=== PATIENT | female | born 1985 | race Caucasian/White ===

== ENCOUNTER 2021-03-19 10:55 | Inpatient (IN) | payer MEDICAID, SELFPAY ==
[2021-03-19] VITALS (32 sets, daily range): BP systolic 98–129; BP diastolic 61–85; PULSE 68–128; RESP 12–20; TEMP 36.6–37.1; O2SAT 92–100; BMI 23.3; BMI 23.0
--- NOTE | 2021-03-19 11:07 | ECG_ITS ---
APPROVED REPORT Exam: Resting ECG HR:102 bpm ECG Measurements Heart Rate 102 AXES FL 116 P 64 QRSd 88 QRS 48 QT 352 T 62 QTc 458 Conclusion Sinus tachycardia Otherwise normal ECG Electronically signed by : Julius Joaquin MD 03/19/2021 17:55:09
--- NOTE | 2021-03-19 11:09 | HMH.EDGENADL ---
ED Disposition Clinical Impression: Near syncope, Elevated troponin Anemia Qualifiers: Anemia type: unspecified type Qualified Code(s): D64.9 - Anemia, unspecified Disposition: Admitted as Observation Condition on Discharge: Fair Referrals: Provider,Referral, [Primary Care Provider] - - Critical Care Critical Care Time: No Attestation: On 03/19/21, the high probability of a clinically significant, sudden or life threatening deterioration of the following system(s) required my full and direct attention, intervention and personal management. The time I documented below is in addition to time spent performing reported procedures but includes the following listed in this critical care notation. Medical Decision Making - Tay Inquiry Pt receiving controlled substance: No Vital Signs: 03/19/21 10:56 03/19/21 11:37 03/19/21 12:00 Temperature 98 F Temperature Source Oral Pulse Rate 102 H Pulse Rate [Orthostatic Lying] 103 H Pulse Rate [Orthostatic Standing] 128 H Pulse Rate [Radial] 110 H Respiratory Rate 18 18 Blood Pressure 109/71 L Blood Pressure [Orthostatic Lying] 110/72 Blood Pressure [Orthostatic Standing] 108/73 L Blood Pressure [Right Arm] 122/78 Blood Pressure Mean [Right Arm] 92 Blood Pressure Source Automatic Cuff Blood Pressure Position Sitting Blood Pressure Position [Right Arm] Sitting 02 Sat by Pulse Oximetry 98 100 Oxygen Delivery Method Room Air Room Air 03/19/21 12:39 Temperature Temperature Source Pulse Rate 94 H Pulse Rate [Orthostatic Lying] Pulse Rate [Orthostatic Standing] Pulse Rate [Radial] Respiratory Rate 12 Blood Pressure 119/63 Blood Pressure [Orthostatic Lying] Blood Pressure [Orthostatic Standing] Blood Pressure [Right Arm] Blood Pressure Mean [Right Arm] Blood Pressure Source Blood Pressure Position Blood Pressure Position [Right Arm] 02 Sat by Pulse Oximetry 100 Oxygen Delivery Method - Lab Data Lab Results 03/19/21 11:06: POC Glucose 127 H 03/19/21 11:11: Urine Color Yellow, Urine Appearance Clear, Urine pH 6.0, Ur Specific [place] 1.010, Urine Protein Negative, Urine Glucose (UA) Negative, Urine Ketones Trace, Urine Blood Trace-i, Urine Nitrate Negative, Urine Bilirubin Negative, Urine Urobilinogen 0.2, Ur Leukocyte Esterase Negative, Urine RBC Occasional, Ur Squamous Epith Cells Occasional, Urine Mucus 1+ 03/19/21 11:11: Urine HCG, Qual Negative 03/19/21 11:11: Urine Opiates Screen Negative, Urine Methadone Screen Negative, Ur Barbituates Screen Negative, Ur Phencyclidine Scrn Negative, Ur Amphetamines Screen Negative, U Benzodiazepines Scrn Negative, Urine Cocaine Screen Negative, U Marijuana (THC) Screen Negative 03/19/21 11:20: WBC 11.0 H, RBC 4.08 L, Hgb 6.7 L*, Hct 27.0 L, MCV 66.1 L, MCH 16.5 L, MCHC 25.0 L, RDW 21.3 H, Plt Count 817 H, MPV 7.3 L, Neut % (Auto) 86.3 H, Lymph % (Auto) 8.6 L, [place] % (Auto) 3.0, Eos % (Auto) 1.8, Baso % (Auto) 0.2, Neut # (Auto) 9.5 H, Lymph # (Auto) 1.0, [place] # (Auto) 0.3, Eos # (Auto) 0.2, Baso # (Auto) 0.0, Total Counted 100, Neutrophils % (Manual) 77 H, Lymphocytes % (Manual) 19, Monocytes % (Manual) 4, Platelet Estimate Marked increase, RBC Morphology Not Reportable, Hypochromasia 1+, Anisocytosis 1+ 03/19/21 11:20: Sodium 136, Potassium 3.7, Chloride 103, Carbon Dioxide 25, Anion Gap 11.7, BUN 6 L, Creatinine 0.40 L, Estimated Creat Clear 197, Estimated GFR 182, Est GFR ( Amer) 220, Glucose 124 H, Calcium 8.9, Total Bilirubin 0.3, AST 32, ALT 13, Alkaline Phosphatase 57, Troponin I 0.09 H, Total Protein 6.8, Albumin 4.0, Globulin 2.8, Albumin/Globulin Ratio 1.4, TSH 0.41 L 03/19/21 11:20: Blood Type Confirm O Negative 03/19/21 12:20: Blood Type O Negative, Antibody Screen Negative, Crossmatch (AHG) See Detail 03/19/21 13:07: Stool Occult Blood Negative Result diagrams: 03/19/21 11:20 03/19/21 11:20 Orders (Tests/Meds): ED MEDICATIONS Generic Name Dose Route Start
[2021-03-19 11:19] LABS: POC Glucose,Bedside 127 (70-110)
--- NOTE | 2021-03-19 11:37 | CT_ITS ---
PROCEDURE: CT HEAD/BRAIN WO CON CLINICAL INDICATION: HEAD INJURY COMPARISON: No exams were available for comparison TECHNIQUE: Axial images obtained. All CT scans at the facility use one or more dose reduction, viz: automated exposure control, ma/kV adjustment per patient size (including targeted exams where dose is matched to indication, i.e. head), or iterative reconstruction technique. FINDINGS: There are low-density changes in the inferior aspect and mid aspect of the cerebellum on the right. Subtle low-density changes are present in the left occipital lobe posteriorly. No midline shift, mass effect, intracranial hemorrhage, or hydrocephalus. No acute calvarial fracture IMPRESSION: Low-density changes in the right cerebellar hemisphere. This could be related to an old area of infarction. Subtle space-occupying lesion with edema would be an additional consideration. Vague low-density changes in the left occipital lobe posteriorly. Cannot exclude an area of infarction. Please correlate with patient's history and clinical presentation. MRI of the brain without and with contrast may provide further evaluation. No acute intracranial hemorrhage. Dictated by: Josh Keene MD 03/19/2021 12:37 Josh Keene MD in [facility] 03/19/2021 12:37
--- NOTE | 2021-03-19 11:38 | CT_ITS ---
PROCEDURE: CT CERVICAL SPINE WO CON CLINICAL INDICATION: FALL COMPARISON: CT CT HEAD/BRAIN WO CON from 03/19/2021 TECHNIQUE: Axial images obtained with sagittal and coronal reformats. All CT scans at the facility use one or more dose reduction, viz: automated exposure control, ma/kV adjustment per patient size (including targeted exams where dose is matched to indication, i.e. head), or iterative reconstruction technique. Axial spiral CT scanning performed of the cervical spine beginning at the base of the skull and continuing to the upper T-spine. 3-D multiplanar reconstruction with 3-D manipulation of volumetric data set in image rendering was completed by the radiologist and/or technologist with the supervision of the radiologist on independent workstation. FINDINGS: Normal alignment. No acute fracture or dislocation. C2-C3: Mild right-sided uncovertebral hypertrophy. C3-C4: Mild right-sided uncovertebral hypertrophy. C4-C5: Unremarkable. C5-C6: Unremarkable. C6-C7: Unremarkable. C7-T1: Unremarkable. IMPRESSION: Cervical spine intact with no fracture nor subluxation. Dictated by: Josh Keene MD 03/19/2021 12:44 Josh Keene MD in [facility] 03/19/2021 12:44
--- NOTE | 2021-03-19 11:39 | CT_ITS ---
PROCEDURE: CT FACIAL BONES WO CON CLINICAL HISTORY: FALL The COMPARISON: No exams were available for comparison TECHNIQUE: Axial images obtained with sagittal and coronal reformats. All CT scans at the facility use one or more dose reduction, viz: automated exposure control, ma/kV adjustment per patient size (including targeted exams where dose is matched to indication, i.e. head), or iterative reconstruction technique. FINDINGS: Bon no acute fracture or dislocation. Mild soft tissue swelling over the right maxillary region. No sinus air-fluid level. Faint density noted over the inferior aspect of nasal septum anteriorly and may be related cartilaginous calcification. There is mild rightward nasal septal deviation. Mucosal thickening is present in the floor of the maxillary sinuses right greater than left and within the mid ethmoid region. The orbits have an unremarkable appearance as do the TMJs. Numerous caries noted. IMPRESSION: No acute fracture. Paranasal sinus disease Numerous caries Dictated by: Josh Keene MD 03/19/2021 12:48 Josh Keene MD in [facility] 03/19/2021 12:48
[2021-03-19 11:40] LABS: Microscopic, Urine URINE MICROSCOPIC (MICROSCOPIC)
[2021-03-19 11:47] LABS: Appearance,Urine CLEAR (Clear); Bilirubin,Urine Negative (Negative); Blood, Urine TRACE-I (Negative); Color,Urine YELLOW (Yellow); Glucose,Urine (UA) Negative (Negative); Ketones,Urine TRACE (Negative); Leukocyte Esterase,Urine Negative (Negative); Nitrate,Urine Negative (Negative); Protein,Urine Negative (Negative); Urobilinogen,Urine 0.2 EU/dl (0.2)
[2021-03-19 11:47] LABS: Basophils % 0.2 % (0.1-2.0); Eosinophils # 0.2 K/mm3 (0.0-0.4); Eosinophils % 1.8 % (0.1-12.0); Lymphocytes % 8.6 % (10-50); Mean Corpuscular Hemoglobin 16.5 pg (27.0-31.2); Mean Corpuscular Volume 66.1 fl (81-99); Mean Platelet Volume 7.3 fl (7.4-10.4); Monocytes # 0.3 K/mm3 (0.1-1.0); Neutrophils # 9.5 K/mm3 (1.8-7.8); Neutrophils % 86.3 % (37.0-80.0); Platelet Count 817 K/mm3 (142-424); Red Blood Count 4.08 M/mm3 (4.20-5.40); Red Cell Distribution Width 21.3 % (11.5-17.5)
[2021-03-19 11:52] LABS: Urine Pregnancy, HCG Qual. Negative (Negative)
--- NOTE | 2021-03-19 11:56 | PC.NURSE ---
lab called with critical hgb on pt, notified RIKA CHERY at this time
[2021-03-19 11:57] LABS: Hemoglobin 6.7 g/dL (12.2-16.2); MANUAL DIFFERENTIAL MANUAL DIFFERENTIAL (MANUAL DIFF)
[2021-03-19 12:07] LABS: Alanine Aminotransferase 13 U/L (12-78); Albumin/Globulin Ratio 1.4 (1.1-1.8); Alkaline Phosphatase 57 U/L (38-126); Anion Gap 11.7 mEq/L (5-15); Aspartate Amino Transferase 32 U/L (14-36); Bilirubin,Total 0.3 mg/dl (0.2-1.3); Blood Urea Nitrogen 6 mg/dl (7-17); Calcium 8.9 mg/dl (8.4-10.2); Carbon Dioxide 25 mmol/L (22.0-30.0); Chloride 103 mmol/L (98-107); Creatinine Clearance Estimated 197 mL/min (50-200); Estimated Glomerular Filt Rate 182 ml/min (>60); GFR (African American) 220 ML/MIN (>60); Globulin 2.8 g/dL (1.3-3.2); Glucose 124 mg/dl (74-100); Potassium 3.7 mmoL/L (3.5-5.1); Sodium 136 mmol/L (136-145); Total Protein,Serum 6.8 g/dl (6.3-8.2)
[2021-03-19 12:08] LABS: Mucus,Urine 1+ /lpf; RBC,Urine Occasional #/hpf (0-3); Squamous Epithelial Cell,Urine Occasional #/hpf (0-5)
[2021-03-19 12:19] LABS: Troponin I 0.09 ng/ml (0.00-0.034)
[2021-03-19 12:21] LABS: Anisocytosis 1+; Hypochromasia 1+; Lymphocytes % 19 % (10-50); Monocytes % 4 % (2-9); Neutrophils % 77 % (42-76); Platelet Estimate Marked Increase; Total Cells Counted 100
--- NOTE | 2021-03-19 12:30 | PC.NURSE ---
pt resting offers no c/o at present
[2021-03-19 12:38] LABS: Thyroid Stimulating Hormone 0.41 uIU/mL (0.465-4.68)
[2021-03-19 13:01] LABS: Barbiturates Screen,Urine Negative ng/ml (<200)
[2021-03-19 13:02] LABS: Amphetamine/Metha Screen,Urine Negative ng/ml (<1000); Benzodiazepines Screen,Urine Negative ng/ml (<200)
[2021-03-19 13:03] LABS: Methadone Screen,Urine Negative ng/ml (<300)
[2021-03-19 13:04] LABS: Cannabinoid Screen,Urine Negative ng/ml (<50); Cocaine Screen,Urine Negative ng/ml (<300)
[2021-03-19 13:05] LABS: Opiate Screen,Urine Negative ng/ml (<300); Phencyclidine Screen,Urine Negative ng/ml (<25)
[2021-03-19 13:09] LABS: Occult Blood,Stool Negative (Negative)
--- NOTE | 2021-03-19 14:30 | PC.NURSE ---
resting offers no c/o at present
--- NOTE | 2021-03-19 14:40 | PC.NURSE ---
Addendum entered by Olga Teran RN 03/19/21 14:43: per [employer] pt will board in ER until a bed is available, states will have a bed available soon. Original Note: notified [employer] of admission
[2021-03-19 14:41] LABS: Coronavirus 19, PCR Not Detected (NotDetected); Influenza A, PCR Not Detected (NotDetected); Influenza B, PCR Not Detected (NotDetected)
--- NOTE | 2021-03-19 14:42 | PC.NURSE ---
notified care management of admission, spoke with ulysses
--- NOTE | 2021-03-19 14:53 | PC.NURSE ---
echo lab called they are gonna wait till after blood transfusion
[2021-03-19 15:03] LABS: Iron 12 ug/dL (37-170)
--- NOTE | 2021-03-19 15:11 | HMH.PHAVTE ---
[facility] Pharmacy VTE Monitoring - Patient Demographics Admission date: 03/19/21 Report Date: 03/19/21 Time: 15:11 Allergies/Adverse Reactions: Patient Allergies sulfamethoxazole [From Bactrim] Allergy (Verified 03/19/21 11:36) trimethoprim [From Bactrim] Allergy (Verified 03/19/21 11:36) Height: 1.65 m Weight: 63.503 kg Patient Problems: Current Active Problems Anemia (Acute) Near syncope (Acute) Elevated troponin (Acute) - VTE Risk Labs: VTE Related Lab Results Hgb 6.7 g/dL (12.2-16.2) L* 03/19/21 11:20 Hct 27.0 % (37.0-47.0) L 03/19/21 11:20 Plt Count 817 K/mm3 (142-424) H 03/19/21 11:20 BUN 6 mg/dl (7-17) L 03/19/21 11:20 Creatinine 0.40 mg/dl (0.52-1.04) L 03/19/21 11:20 Estimated Creat Clear 197 mL/min (50-200) 03/19/21 11:20 Clinical Trial Participant: No - Prophylaxis VTE Prophylaxis Ordered?: Yes Types of VTE Prophylaxis: TEDS Knee High
[2021-03-19 15:13] LABS: Total Iron Binding Capacity 454 ug/dL (265-497)
[2021-03-19 15:41] LABS: Troponin I 0.17 ng/ml (0.00-0.034)
[2021-03-19 15:41] LABS: Ferritin 3.61 ng/ml (6.24-137)
--- NOTE | 2021-03-19 16:09 | PC.NURSE ---
report called to floor
[2021-03-19 16:11] LABS: Vitamin B12 506 pg/mL (239-931)
--- NOTE | 2021-03-19 16:15 | PC.NURSE ---
pt being transported to the floor at this time
--- NOTE | 2021-03-19 16:16 | PC.NURSE ---
pt arrived to the floor at this time
[2021-03-19 18:55] LABS: Troponin I 0.15 ng/ml (0.00-0.034)
[2021-03-20] VITALS (8 sets, daily range): BP systolic 111–119; BP diastolic 65–80; PULSE 78–100; RESP 14–19; TEMP 36.8–37.2; O2SAT 91–100; BMI 23.4
[2021-03-20 04:31] LABS: Hemoglobin 8.5 g/dL (12.2-16.2)
--- NOTE | 2021-03-20 09:14 | HMH.CNCARD ---
History of Present Illness Consult date: 03/20/21 Requesting physician: Kayode Frazier Chief complaint: dizziness, fall History of present illness: This is a 35-year-old white female who presented to the emergency department with complaints of dizziness and a fall with facial injuries from her episode of dizziness yesterday. The patient states that she has had 2 or 3 episodes of dizziness which caused her to have unsteady gait and she falls. Today when she fell she did injure her face. She has bruising noted to her right cheek the bridge of her nose and a bruise above her left eye. She states that her dizziness has resolved at this time. She denies any chest pain or pressure. She denies any shortness of breath or edema. She denies any fever, chills, nausea, vomiting, diarrhea, PND or orthopnea. She denies any headaches. The patient denies a history of cardiac disease. She denies hypertension but states she did have preeclampsia during one of her pregnancies. When the patient was in the emergency department she was found to be severely anemic with an hemoglobin of 6.7. She has been transfused with 2 units of packed red blood cells and her hemoglobin is up to 8.5 today. She is on her menses. She also had an elevated troponin which is most likely secondary to demand ischemia from her profound anemia. She denies having any cardiac history. She is adopted so she does not know her family history. She states her dizziness was associated with blurry vision in her right eye. [facility] History I have reviewed the patient's past medical history: Yes Medical History: Reports:: MRSA Denies:: Cancer, Diabetes Mellitus Type 1, Diabetes Mellitus Type 2 *Have you ever received a pneumonia vaccine?: No *Have you received a flu vaccine this season?: No Other Medical History: Reports: Anemia Other Surgeries: Yes: Bariatric Surgery (2012), Plastic Surgery (tummy tuck (2013), breast reduction (2010)), Tubal Ligation, Other Amputation: No Fractures: No - *Social History Last grade of school completed: Advanced degree Smoking Status: Never smoker Alcohol Intake: current Alcohol Intake Frequency:: holidays/special occasions only Substance Use Type: opiates, prescription drug Last Used Substance: days (ago) *Occupational Status:: unemployed Housing: house Household Members: spouse, children *Travel in the last 8 weeks: Inside the [facility] Family Hx:: Adopted Meds Home Medications Medication Instructions Recorded Confirmed Type No Known Home Medications 03/19/21 03/19/21 History Allergies Allergy/AdvReac Type Severity Reaction Status Date / Time sulfamethoxazole Allergy Verified 03/19/21 11:36 [From Bactrim] trimethoprim [From Bactrim] Allergy Verified 03/19/21 11:36 Exam Vital signs and Labs for Last 24 Hours: Temp Pulse Resp BP Pulse Ox 98.2 F 90 14 118/80 100 03/20/21 08:00 03/20/21 08:00 03/20/21 08:00 03/20/21 08:00 03/20/21 08:00 Laboratory Results - last 24 hr 03/19/21 11:06: POC Glucose 127 H 03/19/21 11:11: Urine Color Yellow, Urine Appearance Clear, Urine pH 6.0, Ur Specific [place] 1.010, Urine Protein Negative, Urine Glucose (UA) Negative, Urine Ketones Trace, Urine Blood Trace-i, Urine Nitrate Negative, Urine Bilirubin Negative, Urine Urobilinogen 0.2, Ur Leukocyte Esterase Negative, Urine RBC Occasional, Ur Squamous Epith Cells Occasional, Urine Mucus 1+ 03/19/21 11:11: Urine HCG, Qual Negative 03/19/21 11:11: Urine Opiates Screen Negative, Urine Methadone Screen Negative, Ur Barbituates Screen Negative, Ur Phencyclidine Scrn Negative, Ur Amphetamines Screen Negative, U Benzodiazepines Scrn Negative, Urine Cocaine Screen Negative, U Marijuana (THC) Screen Negative 03/19/21 11:20: WBC 11.0 H, RBC 4.08 L, Hgb 6.7 L*, Hct 27.0 L, MCV 66.1 L, MCH 16.5 L, MCHC 25.0 L, RDW 21.3 H, Plt Count 817 H, MPV 7.3 L, Neut % (Auto) 86.3 H, Lymph % (Auto) 8.6 L, [place] % (Auto) 3.0, Eos % (Auto) 1.8, Baso % (Auto) 0.2, Neut # (Aut
--- NOTE | 2021-03-20 09:23 | CT_ITS ---
PROCEDURE INFORMATION: Exam: CT Abdomen And Pelvis Without Contrast Exam date and time: 03/20/2021 9:23 AM Age: 35 years old Clinical indication: Other: Anemia, weakness TECHNIQUE: Imaging protocol: Computed tomography of the abdomen and pelvis without contrast. Radiation optimization: All CT scans at this facility use at least one of these dose optimization techniques: automated exposure control; mA and/or kV adjustment per patient size (includes targeted exams where dose is matched to clinical indication); or iterative reconstruction. COMPARISON: No relevant prior studies available. FINDINGS: Liver: Normal. No mass. Gallbladder and bile ducts: Normal. No calcified stones. No ductal dilation. Pancreas: Normal. No ductal dilation. Spleen: Normal. No splenomegaly. Adrenal glands: Normal. No mass. Kidneys and ureters: Normal. No hydronephrosis. Stomach and bowel: Postsurgical changes of Marek-en-Y gastric bypass. No bowel obstruction. Appendix: No evidence of appendicitis. Intraperitoneal space: Unremarkable. No free air. No significant fluid collection. Vasculature: Unremarkable. No abdominal aortic aneurysm. Lymph nodes: Unremarkable. No enlarged lymph nodes. Urinary bladder: Unremarkable as visualized. Reproductive: A tubal ligation clip is seen on the left. Bones/joints: Unremarkable. No acute fracture. Soft tissues: Postsurgical changes in the ventral abdominal wall. IMPRESSION: No acute findings in the abdomen or pelvis.
[2021-03-20 09:35] LABS: Basophils % 0.3 % (0.1-2.0); Eosinophils # 0.6 K/mm3 (0.0-0.4); Eosinophils % 7.7 % (0.1-12.0); Hematocrit 31.7 % (37.0-47.0); Hemoglobin 8.9 g/dL (12.2-16.2); Lymphocytes # 1.5 K/mm3 (0.7-4.5); Lymphocytes % 20.2 % (10-50); Mean Corpuscular Hemoglobin 19.2 pg (27.0-31.2); Mean Corpuscular Volume 68.6 fl (81-99); Mean Platelet Volume 8.1 fl (7.4-10.4); Monocytes # 0.4 K/mm3 (0.1-1.0); Monocytes % 5.1 % (1.7-9.3); Neutrophils # 5.1 K/mm3 (1.8-7.8); Neutrophils % 66.7 % (37.0-80.0); Platelet Count 743 K/mm3 (142-424); Red Blood Count 4.62 M/mm3 (4.20-5.40); Red Cell Distribution Width 22.9 % (11.5-17.5); White Blood Count 7.6 K/mm3 (4.8-10.8)
[2021-03-20 09:46] LABS: Chloride 106 mmol/L (98-107); Potassium 3.9 mmoL/L (3.5-5.1); Sodium 141 mmol/L (136-145)
[2021-03-20 09:49] LABS: Anion Gap 11.9 mEq/L (5-15); Blood Urea Nitrogen 5 mg/dl (7-17); Carbon Dioxide 27 mmol/L (22.0-30.0); Creatinine Clearance Estimated 158 mL/min (50-200); Estimated Glomerular Filt Rate 140 ml/min (>60); GFR (African American) 170 ML/MIN (>60)
[2021-03-20 09:50] LABS: Calcium 8.9 mg/dl (8.4-10.2); Glucose 86 mg/dl (74-100)
--- NOTE | 2021-03-20 13:56 | HMH.HPDC ---
General - General Admission date:: 03/19/21 Discharge date: 03/20/21 *Admission Date: 03/19/21 *Chief complaint: dizziness *History of present illness: 35-year-old white female who presented to the emergency department with complaints of dizziness and a fall with facial injuries from her episode of dizziness yesterday. The patient states that she has had 2 or 3 episodes of dizziness which caused her to have unsteady gait and she falls. Today when she fell she did injure her face. She has bruising noted to her right cheek the bridge of her nose and a bruise above her left eye. She states that her dizziness has resolved at this time. She denies any chest pain or pressure. She denies any shortness of breath or edema. She denies any fever, chills, nausea, vomiting, diarrhea, PND or orthopnea. She denies any headaches. The patient denies a history of cardiac disease. She denies hypertension but states she did have preeclampsia during one of her pregnancies. When the patient was in the emergency department she was found to be severely anemic with an hemoglobin of 6.7. She has been transfused with 2 units of packed red blood cells and her hemoglobin is up to 8.5 today. She is on her menses. She also had an elevated troponin which is most likely secondary to demand ischemia from her profound anemia. She denies having any cardiac history. She is adopted so she does not know her family history. She states her dizziness was associated with blurry vision in her right eye. [facility] History I have reviewed the patient's past medical history: Yes Medical History: Reports:: MRSA Denies:: Cancer, Diabetes Mellitus Type 1, Diabetes Mellitus Type 2 *Have you ever received a pneumonia vaccine?: No *Have you received a flu vaccine this season?: No Other Medical History: Reports: Anemia Other Surgeries: Yes: Bariatric Surgery (2012), Plastic Surgery (tummy tuck (2013), breast reduction (2010)), Tubal Ligation, Other Amputation: No Fractures: No - *Social History Last grade of school completed: Advanced degree Smoking Status: Never smoker Alcohol Intake: current Alcohol Intake Frequency:: holidays/special occasions only Substance Use Type: opiates, prescription drug Last Used Substance: days (ago) *Occupational Status:: unemployed Housing: house Household Members: spouse, children *Travel in the last 8 weeks: Inside the [facility] Family Hx:: Adopted Review of Systems - Review of Systems Review of systems:: pertinent systems reviewed and negative unless documented below - Constitutional Denies body ache(s) - Eyes Denies blurry vision - ENT Denies bleeding gums, Denies sore throat - *Cardiovascular Denies chest pain at rest - *Respiratory Denies chest congestion - *Gastrointestinal Denies belching - *Genitourinary Reports abnormal periods - *Musculoskeletal Denies joint pain - Integumentary/Breasts Denies change in skin color - *Neurologic Reports dizziness, Reports frequent falls, Denies localized weakness, Denies headache(s), Denies numbness, Denies weakness - Psychiatric Denies lack of enjoyment - Endocrine Denies excessive sweating - Hematologic/Lymphatic Denies easy bruising - Allergic/Immunologic Denies itchy eyes Exam Vital signs and Labs for Last 24 Hours: Temp Pulse Resp BP Pulse Ox 98.2 F 90 14 118/80 100 03/20/21 08:00 03/20/21 08:00 03/20/21 08:00 03/20/21 08:00 03/20/21 08:00 Laboratory Results - last 24 hr 03/19/21 11:20: Iron 12 L, TIBC 454, Iron Saturation 2.79376 L, Ferritin 3.61 L 03/19/21 11:20: Vitamin B12 506, Folate 12.30 03/19/21 12:20: Blood Type O Negative, Antibody Screen Negative, Crossmatch (AHG) See Detail 03/19/21 14:31: SARS-CoV-2 (PCR) Not detected, Influenza A Untype (PCR) Not detected, Influenza Type B (PCR) Not detected 03/19/21 14:48: Troponin I 0.17 H 03/19/21 18:20: Troponin I 0.15 H 03/20/21 03:10: Hgb 8.5 L D, Hct 31.0 L 03/20/21 08:40: WBC 7.6 D, RBC
--- NOTE | 2021-03-20 14:38 | CA_ITS ---
APPROVED REPORT EXAM: Comprehensive 2D, Doppler, and color-flow Echocardiogram Head Butler: Caity Martínez RDCS Ht: 5 ft 5 in Wt: 140lbs BSA: 1.70 BP: 114/63 mmHg Indications: dizziness,syncope 2D Dimensions LVOT 2.15 cm (M/F) 1.5-2.5 M-Mode Dimensions RVDd 2.64 cm (0.9-2.6) LA Diam 3.32 cm (1.9-4.0) LVDd 4.52 cm (3.5-5.7) Ao Diam 3.41 cm (2.0-3.7) LVDs 3.49 cm (3.5-5.7) IVSd 0.94 cm (0.6-1.1) PWd 1.21 cm (0.6-1.1) EF (Teich) 45.90% FS 22.80% EDV (Teich) 93.40 mL ESV (Teich) 50.50 mL LV Diastology E Decel Time 187.00 (160-240 msec) E/A Ratio 1.2 MED E' 8.60 (< 7 cm/sec) E'/MED E' Ratio 10.94 (>14) LAT E' 13.20 (<10 cm/sec) E/LAT E' Ratio 7.13 (>14) Mitral Valve MV E Max Josep. 94.00 (40-130 cm/s) MV A Velocity 78.00 (40-130 cm/s) E/A Ratio 1.20 MV Decel. Time 187.00 (160-240 ms) MV PHT 55.00 ms Left Ventricle Left atrium is normal size, left ventricle is normal size, there is no concentric left ventricular hypertrophy, visually estimated ejection fraction 55% with no regional wall motion abnormality. Diastolic parameters are within normal range. Right Ventricle Right atrium and right ventricle are normal size and contractility. Aortic Valve Aortic valve is grossly normal, there is no aortic stenosis or aortic insufficiency. Mitral Valve Mitral valve grossly normal, there is trace mitral regurgitation. Tricuspid Valve Tricuspid valve grossly normal, there is trace tricuspid regurgitation, tricuspid regurgitation jet velocity is inadequate for calculation of the right ventricular systolic pressure. Pulmonic Valve Pulmonic valve is poorly visualized. Great Vessels Aortic root is normal size. Inferior vena cava normal size with normal inspiratory collapse. Pericardium No significant pericardial effusion noted. Conclusion 1. Normal left ventricular size, preserved left ventricular systolic function, visually estimated ejection fraction 55% with no regional wall motion abnormality, diastolic parameters are within normal range. 2. Trace mitral and tricuspid regurgitation. 3. No significant pericardial effusion noted. 4. Inferior vena cava is normal size with normal inspiratory collapse. Electronically signed by : Amadou Eli MD 03/20/2021 19:47:34
[2021-03-21 14:53] LABS: Peripheral Smear Review Scanned Result
== END 2021-03-20 15:10 | disposition home or self-care (01) | DRG 812 ==
LOC: ER 14:39 → 2ND 15:11
PROVIDERS: Nurse Practitioner Family; Admitting Provider Emergency Medicine; Emergency Provider Emergency Medicine; Visit Provider Emergency Medicine
DX: D64.9 Anemia, unspecified (principal); Z20.822 Contact with and (suspected) exposure to COVID-19; R77.8 Other specified abnormalities of plasma proteins; W19.XXXA Unspecified fall, initial encounter; S00.81XA Abrasion of other part of head, initial encounter; F17.200 Nicotine dependence, unspecified, uncomplicated
CPT/HCPCS: 36415; 70450; 70486; 72125; 74176; 80048; 80053; 80305; 81001; 81025; 82272; 82607; 82728; 82746; 82962; 83540; 83550; 84443; 84484; 85007; 85014; 85018; 85025; 86850; 93005; 93306; 96365; 99284; C9803; G0328; P9016; U0003; U0005

== ENCOUNTER 2021-04-10 11:05 | Outpatient (CLI) | payer MEDICAID, SELFPAY ==
[2021-04-10 11:35] VITALS: BP 144/89; PULSE 84; RESP 18; TEMP 36.3; O2SAT 100
[2021-04-10 12:18] VITALS: BP 156/92; PULSE 68; RESP 18
== END 2021-04-10 12:18 | disposition home or self-care (01) ==
LOC: INF 11:07
PROVIDERS: Visit Provider Internal Medicine Medical Oncology
DX: D64.9 Anemia, unspecified (principal)
CPT/HCPCS: 96365; J1439

== ENCOUNTER → 2021-04-15 12:23 | Outpatient (CLI) | payer MEDICAID, SELFPAY ==
[2021-04-15 12:48] LABS: Basophils # 0.1 K/mm3 (0-0.2); Basophils % 1.7 % (0.1-2.0); Eosinophils # 0.4 K/mm3 (0.0-0.4); Eosinophils % 6.5 % (0.1-12.0); Hematocrit 37.6 % (37.0-47.0); Hemoglobin 11.1 g/dL (12.2-16.2); Lymphocytes # 1.4 K/mm3 (0.7-4.5); Lymphocytes % 21.8 % (10-50); Mean Corpuscular HGB Conc 29.6 g/dL (31.8-35.4); Mean Corpuscular Hemoglobin 22.8 pg (27.0-31.2); Mean Corpuscular Volume 77.2 fl (81-99); Mean Platelet Volume 7.3 fl (7.4-10.4); Monocytes # 0.3 K/mm3 (0.1-1.0); Monocytes % 5.3 % (1.7-9.3); Neutrophils # 4.1 K/mm3 (1.8-7.8); Neutrophils % 64.8 % (37.0-80.0); Platelet Count 328 K/mm3 (142-424); Red Blood Count 4.87 M/mm3 (4.20-5.40); White Blood Count 6.4 K/mm3 (4.8-10.8)
[2021-04-15 12:51] LABS: Red Cell Distribution Width 28.5 % (11.5-17.5)
[2021-04-15 13:46] LABS: Iron 119 ug/dL (37-170)
[2021-04-15 13:56] LABS: Total Iron Binding Capacity 353 ug/dL (265-497)
[2021-04-15 14:19] LABS: Ferritin 599 ng/ml (6.24-137)
== END ==
PROVIDERS: Visit Provider Internal Medicine Hematology & Oncology
DX: D64.9 Anemia, unspecified (principal)
CPT/HCPCS: 36415; 82728; 83540; 83550; 85025

== ENCOUNTER 2021-04-17 10:41 | Outpatient (CLI) | payer MEDICAID, SELFPAY ==
[2021-04-17 11:35] VITALS: BP 128/81; PULSE 87; RESP 18; TEMP 37.1; O2SAT 100
[2021-04-17 12:05] VITALS: BP 141/91; PULSE 77; RESP 18
== END 2021-04-17 12:15 | disposition home or self-care (01) ==
LOC: INF 10:42
PROVIDERS: PCP Nurse Practitioner Family; Visit Provider Internal Medicine Medical Oncology
DX: D64.9 Anemia, unspecified (principal)
CPT/HCPCS: 96365; J1439

== ENCOUNTER → 2021-05-20 11:50 | Outpatient (CLI) | payer MEDICAID, SELFPAY ==
[2021-05-20 13:05] LABS: Basophils % 0.3 % (0.1-2.0); Eosinophils # 0.2 K/mm3 (0.0-0.4); Eosinophils % 3.5 % (0.1-12.0); Hematocrit 42.9 % (37.0-47.0); Hemoglobin 13.9 g/dL (12.2-16.2); Lymphocytes # 2.1 K/mm3 (0.7-4.5); Lymphocytes % 40.7 % (10-50); Mean Corpuscular HGB Conc 32.4 g/dL (31.8-35.4); Mean Corpuscular Hemoglobin 29.2 pg (27.0-31.2); Mean Corpuscular Volume 90.1 fl (81-99); Mean Platelet Volume 7.3 fl (7.4-10.4); Monocytes # 0.3 K/mm3 (0.1-1.0); Neutrophils # 2.6 K/mm3 (1.8-7.8); Neutrophils % 50.4 % (37.0-80.0); Platelet Count 400 K/mm3 (142-424); Red Blood Count 4.76 M/mm3 (4.20-5.40); Red Cell Distribution Width 23.5 % (11.5-17.5); White Blood Count 5.2 K/mm3 (4.8-10.8)
[2021-05-20 13:44] LABS: Iron 124 ug/dL (37-170)
[2021-05-20 13:58] LABS: Total Iron Binding Capacity 336 ug/dL (265-497)
[2021-05-20 14:17] LABS: Ferritin 254 ng/ml (6.24-137)
== END ==
PROVIDERS: PCP Nurse Practitioner Family; Visit Provider Internal Medicine Medical Oncology
DX: D50.9 Iron deficiency anemia, unspecified (principal)
CPT/HCPCS: 36415; 82728; 83540; 83550; 85025

== ENCOUNTER → 2021-06-06 13:08 | Outpatient (CLI) | payer MEDICAID, SELFPAY ==
--- NOTE | 2021-06-06 13:09 | US_ITS ---
FINAL REPORT CLINICAL HISTORY: Heavy bleeding FINDINGS: Transvaginal sonographic images of the pelvis were obtained. The uterus measures 10.4 x 6.8 x 5.4 cm. The endometrium is thickened at 17 mm. There is a possible polyp present in the endometrium measuring 17 mm. The right ovary measures 4.2 x 3.6 x 3.5 cm and left ovary measures 5.3 x 3.4 x 1.5 cm. Normal blood flow seen to the ovaries. There is a 2.4 cm right ovarian cyst. There are small follicles in the left ovary. There is no evidence of free fluid. IMPRESSION: 1. Right ovarian cyst measuring 2.4 cm. 2. Thickened endometrium at 17 mm. 3. Possible polyp in the endometrium. Reviewed, Interpreted and Dictated by Conner Bell III, MD Transcribed by ANDERS Celaya Authenticated by Conner Bell III, MD on 06/06/2021 02:17:01 PM [facility]
== END ==
PROVIDERS: Visit Provider Obstetrics & Gynecology
DX: N92.6 Irregular menstruation, unspecified (principal)
CPT/HCPCS: 76830

== ENCOUNTER → 2021-06-19 10:01 | Outpatient (CLI) | payer MEDICAID, SELFPAY ==
[2021-06-19 10:46] LABS: Basophils # 0.1 K/mm3 (0-0.2); Basophils % 2.1 % (0.1-2.0); Eosinophils # 0.2 K/mm3 (0.0-0.4); Eosinophils % 3.5 % (0.1-12.0); Hematocrit 43.9 % (37.0-47.0); Hemoglobin 13.9 g/dL (12.2-16.2); Lymphocytes # 1.6 K/mm3 (0.7-4.5); Lymphocytes % 27.2 % (10-50); Mean Corpuscular HGB Conc 31.7 g/dL (31.8-35.4); Mean Corpuscular Hemoglobin 31.4 pg (27.0-31.2); Mean Corpuscular Volume 99.1 fl (81-99); Mean Platelet Volume 7.5 fl (7.4-10.4); Monocytes # 0.2 K/mm3 (0.1-1.0); Monocytes % 3.2 % (1.7-9.3); Neutrophils # 3.8 K/mm3 (1.8-7.8); Neutrophils % 63.9 % (37.0-80.0); Platelet Count 346 K/mm3 (142-424); Red Blood Count 4.43 M/mm3 (4.20-5.40); Red Cell Distribution Width 17.2 % (11.5-17.5); White Blood Count 5.9 K/mm3 (4.8-10.8)
[2021-06-19 10:59] LABS: Alanine Aminotransferase 10 U/L (12-78); Albumin Level 4.2 g/dl (3.5-5.0); Albumin/Globulin Ratio 1.8 (1.1-1.8); Alkaline Phosphatase 82 U/L (38-126); Anion Gap 8.2 mEq/L (5-15); Aspartate Amino Transferase 23 U/L (14-36); Bilirubin,Total 0.8 mg/dl (0.2-1.3); Blood Urea Nitrogen 11 mg/dl (7-17); Calcium 8.9 mg/dl (8.4-10.2); Carbon Dioxide 27 mmol/L (22.0-30.0); Chloride 107 mmol/L (98-107); Estimated Glomerular Filt Rate 181 ml/min (>60); GFR (African American) 219 ML/MIN (>60); Globulin 2.4 g/dL (1.3-3.2); Glucose 97 mg/dl (74-100); Potassium 4.2 mmoL/L (3.5-5.1); Sodium 138 mmol/L (136-145); Total Protein,Serum 6.6 g/dl (6.3-8.2)
[2021-06-19 11:27] LABS: HCG Qualitative, Serum Negative (Negative)
== END ==
PROVIDERS: Visit Provider Obstetrics & Gynecology
DX: Z01.812 Encounter for preprocedural laboratory examination (principal); Z11.52 Encounter for screening for COVID-19; N92.0 Excessive and frequent menstruation with regular cycle; N93.8 Other specified abnormal uterine and vaginal bleeding; N84.0 Polyp of corpus uteri; N85.2 Hypertrophy of uterus; Z98.51 Tubal ligation status
CPT/HCPCS: 36415; 80053; 84703; 85025; C9803; U0003; U0005

== ENCOUNTER 2021-06-21 07:08 | Day surgery (SDC) | payer MEDICAID, SELFPAY ==
[2021-06-18 17:05] VITALS: BMI 23.3
[2021-06-21] VITALS (11 sets, daily range): BP systolic 118–141; BP diastolic 75–97; PULSE 58–75; RESP 12–20; TEMP 36.3–36.9; O2SAT 94–100
--- NOTE | 2021-06-21 07:41 | HMH.ANESCL ---
[facility] Anesthesia Checklist - Patient Identification Patient Identification: Arm Band, Verbal (Name & ) - Structural Data Admitted From: Home Planned Operative Procedure/s: Hysteroscopy/D&C Consent for Planned Operative Procedure(s) Verified: Yes Verified Documents: Surgical Consent - NPO Status Verified Time NPO: 00:00 - Chart Verification Results Verified: CBC, HCG - Additional verifications Anesthesia Reactions: No Hx Blood Transfusions: Yes Blood Transfusion Reaction: No - Airway Assessment C-Spine Mobility Assessed: Yes TMJ Mobility Assessed: Yes Dentition: Good Dentition - Neurological Assessment Level of Consciousness: Awake, Alert, Appropriate - Anesthesia Plan Anesthesia Risk discussed: Yes ASA Class: II Anesthesia Type: General [facility] History I have reviewed the patient's past medical history: Yes Medical History: Reports:: MRSA Denies:: Cancer, Diabetes Mellitus Type 1, Diabetes Mellitus Type 2, Seizures *Have you ever received a pneumonia vaccine?: No *Have you received a flu vaccine this season?: No Other Medical History: Reports: Anemia. Denies: Blood Transfusion Reaction Anesthesia experience/problems:: none Other Surgeries: Yes: Bariatric Surgery, Plastic Surgery, Tubal Ligation, Other Amputation: No Fractures: No - *Social History Last grade of school completed: Advanced degree Smoking Status: Never smoker Alcohol Intake: never Alcohol Intake Frequency:: holidays/special occasions only Substance Use Type: opiates, prescription drug, former substance user *Occupational Status:: unemployed Housing: house Household Members: spouse, children *Travel in the last 8 weeks: None Family Hx:: Adopted
--- NOTE | 2021-06-21 09:45 | P.PN_ITS ---
[facility] Anesthesia Record Part I Intake, IV Amount: 800 Estimated blood loss (mL): 5 Urine output (mL): 0 Blood Pressure: 118/75 SaO2: 98 Pulse Rate: 62 Respiratory Rate: 20 Temperature: 97.4 F Patient is:: Drowsy Stable to PACU at:: 09:43
--- NOTE | 2021-06-21 10:35 | SUR.PHASEI ---
1011 detailed report given to Timoteo Aquino RN [id number] pt transported via stretcher to post op. pt in stable condition. pt left with Timoteo Aquino RN at bedside.
--- NOTE | 2021-06-21 10:37 | P.PN_ITS ---
[facility] Anesthesia Record Part II Discharge Time: 10:13 Destination: Surgical Day Care (OP Surgery) PACU nurse assessment reviewed?: Yes Patient Condition:: Good Anesthesia Complications:: None Swallowing reflex intact?: Yes Cyanosis?: No Blood Pressure: 125/90 Pulse Rate: 66 Temperature: 98.5 F Mental Status: Alert & Oriented Pain level:: 2 Nausea and/or vomitting:: None Intake, IV Amount: 0
--- NOTE | 2021-06-21 12:06 | P.OP_ITS ---
Date of procedure: 06/21/21 Pre-op Diagnosis:: 1. Heavy Menstrual bleeding 2. Dysfunctional uterine bleeding 3. Anemia secondary to chronic blood loss 4. Endometrial polyp Post-op Diagnosis:: same Procedure performed:: D&C Hysteroscopy with Myosure excision of endometrial polyp Novasure Endometrial Ablation Surgeon:: Karen Taylor MD [employer]ACHINE OPERATOR:: Other Anesthesia: GETA Estimated blood loss (mL): 5 Operative findings:: endometrial polyp anterior uterine cavity Operative note:: The patient was taken to the operating room and general anesthesia was administered. She was prepped/draped in lithotomy position. The anterior lip of the cervix was grasped with a single tooth tenaculum and the cervix was dilated with Chen dilators of serially increasing size until the external os was able to accomodate the Myosure hysteroscope. The hysteroscope was advanced through the cervix and into the uterine cavity, which was distended with LR. Once the uterus was sufficiently distended, the cavity was evaluated and revealed a single endometrial polyp. The Myosure was inserted into the hysteroscope and the polyp was excised successfully and without complication or significant fluid deficit. After the conclusion of this procedure, the Myosure and hysteroscope were removed from the uterus. The uterine cavity sounded to a length of 5.5cm. The Novasure was inserted through the cervix and expanded to fit the width of the uterus, with a width of 4.8cm. After a successful cavity assessment, the device was deployed and the endometrial ablation was completed in 81seconds. Once the device had turned off, the Novasure was removed from the uterus and the hysteroscope was reinserted into the uterine cavity. The cavity appeared diffusely cauterized. The hysteroscope was removed from the uterus and all instruments removed from the vagina. The tenaculum site was hemostatic. All sponge/lap/needle/instrument counts correct x2. Total EBL: 5 cc. The patient was taken out of lithotomy position, extubated and taken to the PACU in stable condition. Condition: stable Disposition: PACU Specimens:: endometrial currettings Complications:: none
== END 2021-06-21 10:44 | disposition home or self-care (01) ==
LOC: OR 07:09
PROVIDERS: PCP Obstetrics & Gynecology; Visit Provider Obstetrics & Gynecology
PROC: (CPT 58563; principal; 2021-06-21 08:30)
DX: N92.0 Excessive and frequent menstruation with regular cycle (principal); N84.0 Polyp of corpus uteri; D50.0 Iron deficiency anemia secondary to blood loss (chronic); N85.2 Hypertrophy of uterus; Z98.51 Tubal ligation status
CPT/HCPCS: 58563; 96374; J2405

== ENCOUNTER → 2021-11-13 10:41 | Outpatient (CLI) | payer MEDICAID, SELFPAY ==
[2021-11-13 11:56] LABS: Basophils # 0.1 K/mm3 (0-0.2); Basophils % 1.1 % (0.1-2.0); Eosinophils # 0.2 K/mm3 (0.0-0.4); Eosinophils % 3.2 % (0.1-12.0); Hematocrit 46.6 % (37.0-47.0); Hemoglobin 14.7 g/dL (12.2-16.2); Lymphocytes # 1.9 K/mm3 (0.7-4.5); Mean Corpuscular HGB Conc 31.6 g/dL (31.8-35.4); Mean Corpuscular Hemoglobin 30.2 pg (27.0-31.2); Mean Corpuscular Volume 95.8 fl (81-99); Mean Platelet Volume 7.4 fl (7.4-10.4); Monocytes # 0.2 K/mm3 (0.1-1.0); Monocytes % 3.1 % (1.7-9.3); Neutrophils # 4.7 K/mm3 (1.8-7.8); Neutrophils % 65.6 % (37.0-80.0); Platelet Count 390 K/mm3 (142-424); Red Blood Count 4.86 M/mm3 (4.20-5.40); White Blood Count 7.1 K/mm3 (4.8-10.8)
[2021-11-13 13:14] LABS: Iron 85 ug/dL (37-170)
[2021-11-13 13:24] LABS: Total Iron Binding Capacity 350 ug/dL (265-497)
[2021-11-13 13:51] LABS: Ferritin 60.1 ng/ml (6.24-137)
== END ==
LOC: INF 10:44 → LAB 10:51
PROVIDERS: Visit Provider Internal Medicine Medical Oncology
DX: N92.0 Excessive and frequent menstruation with regular cycle (principal); D50.0 Iron deficiency anemia secondary to blood loss (chronic)
CPT/HCPCS: 36415; 82728; 83540; 83550; 85025